=== PATIENT | male | born 1990 | race Caucasian/White ===

== ENCOUNTER 2022-06-06 07:30 | Observation (INO) | payer OTHER, SELFPAY ==
[2022-06-06] VITALS (129 sets, daily range): BP systolic 93–139; BP diastolic 57–82; PULSE 81–138; RESP 15–32; TEMP 36.6–36.9; O2SAT 96–100; BMI 38.2
[2022-06-06 07:50] LABS: Glucose Point of Care > 600 mg/dL (70-110)
--- NOTE | 2022-06-06 07:53 | ED_ITS ---
HPI - General Adult General: Chief complaint: General Medical Stated complaint: Type 1 Diabetes, very sick Time Seen by Provider: 06/06/22 07:34 Source: patient Mode of arrival: ambulatory History of Present Illness: 31-year-old male with a known history of type 1 diabetes mellitus has not had insulin for last 2 days. He had run out of insulin he is waiting to get paid before he refill that he has been having nausea and vomiting blood sugars have been markedly elevated his glucometer just read high. Polyuria polydipsia. States is gotten point that even drinking water he vomits. Denies hematochezia melena hematemesis coffee-ground emesis. Prior to running out of insulin he had not been ill he has not had any shortness of breath or cough no dysuria urgency or frequency no abdominal pain prior to the onset of the vomiting. Onset (ago): day(s) (2) Severity: severe Quality: aching Pain Consistency: constant Relieving factors: none Associated symptoms: Reports decreased appetite, headache(s), malaise, nausea, vomiting and weakness; Deny chest pain, confusion, cough, diaphoresis, dyspnea, fevers/chills, rash, palpitations, seizures, short of breath or syncope Treatments prior to arrival: none Review of Systems Const: Reports: fatigue and malaise; Denies: fever(s), chills or diaphoresis ENMT: Denies: throat pain, ear or mastoid pain, nasal discharge or nasal congestion Card: Denies: chest pain, palpitations or syncope Resp: Denies: dyspnea GI: Reports: abdominal pain, nausea, vomiting and GI cramping; Denies: hematemesis, diarrhea, bloating or hematochezia : Reports: difficulty urinating and urinary frequency; Denies: flank pain, dysuria or urinary urgency Musc: Reports: neck pain; Denies: back pain Skin/Breast: Denies: rash or pruritus Neuro: Reports: headache(s); Denies: confusion PFSH ED PFSH: Medical History (Updated 06/06/22 @ 10:07 by Catalino Rousseau MD) Type 1 diabetes mellitus Surgical History (Updated 06/06/22 @ 10:05 by Catalino Rousseau MD) History of surgery on lower extremity Family History (Updated 06/06/22 @ 10:05 by Catalino Rousseau MD) Other Hypertension Social History (Updated 06/06/22 @ 07:56 by Alfred Howard DO) Smoking and tobacco status: never smoked Alcohol intake: current Physical Exam Const: GENERAL APPEARANCE: cooperative ORIENTATION/CONSCIOUSNESS: Yes awake, Yes oriented to person, Yes oriented to place and Yes oriented to time HENMT: COMMON NORMALS: normocephalic, atraumatic and hearing grossly normal bilaterally HEAD & SCALP: normocephalic and atraumatic Resp: COMMON NORMALS: normal respiratory effort, No retractions, No use of a ccessory muscles and clear to auscultation bilaterally AUSCULTATION: clear to auscultation bilaterally Cardio: COMMON NORMALS: regular rhythm and No murmurs present (Cardio) RATE: tachycardic RHYTHM: regular rhythm GI: COMMON NORMALS: Soft to palpation and No hepatosplenomegaly present AUSCULTATION: Yes normoactive bowel sounds PALPATION: Yes Soft to palpation, No Tenderness to palpation present (GI), No Guarding due to palpation present (GI) and Yes No hepatosplenomegaly present Extremity: COMMON NORMALS: normal to inspection, capillary refill normal, no clubbing, cyanosis or edema, no calf tenderness and no pedal edema Neuro: SENSORIUM/ORIENTATION: Yes oriented to person, Yes oriented to place and Yes oriented to time Skin: COMMON NORMALS: no rashes or lesions noted GENERAL SKIN EXAM: no rashes or lesions noted Course Vital Signs: Vital signs: Vital Signs Temperature 97.8 F 06/06/22 07:37 Pulse Rate 118 H 06/06/22 09:55 Respiratory Rate 20 H 06/06/22 09:55 Blood Pressure 125/61 06/06/22 09:55 Pulse Oximetry 100 06/06/22 09:55 Oxygen Delivery Me thod 06/06/22 07:37 MDM - General Adult Medical Decision Making DKA secondary to nonuse of insulin. IV fluids started initial insulin bolus and insulin drip as well as sodium bicarb ordered discussed Dr. Rousseau he will admit to the ICU. There is a delay for available beds because of's staffing and census he will remain in the ER until bed is available. Medical Records I reviewed the patient's medical records. Lab Data I reviewed the patient's lab results. : 06/06/22 07:55 06/06/22 07:55 Radiology Impressions Chest X-Ray 06/06/22 08:47 IMPRESSION: No chest radiographic evidence of acute cardiopulmonary disease. Laboratory Results WBC 19.8 10^3/uL (4.0-10.0) H 06/06/22 07:55 RBC 5.17 10^6/uL (4.1-5.3) 06/06/22 07:55 Hgb 16.0 g/dL (11.7-16.6) 06/06/22 07:55 Hct 51.4 % (42.0-52.0) 06/06/22 07:55 MCV 99.4 fl (80-94) H 06/06/22 07:55 MCH 30.9 pg (28.0-34.0) 06/06/22 07:55 MCHC 31.1 g/dL (30.0-36.0) 06/06/22 07:55 RDW 13.1 % (12.1-15.1) 06/06/22 07:55 Plt Count 469 10^3/cmm (130-400) H 06/06/22 07:55 MPV 9.6 fL (7.4-10.4) 06/06/22 07:55 Neut % (Auto) 79.2 % 06/06/22 07:55 Lymph % (Auto) 16.1 % 06/06/22 07:55 [place] % (Auto) 3.7 % 06/06/22 07:55 Eos % (Auto) 0.1 % 06/06/22 07:55 Baso % (Auto) 0.3 % 06/06/22 07:55 Neut # (Auto) 15.73 10^3/uL (1.8-7.7) H 06/06/22 07:55 Lymph # (Auto) 3.2 10^3/uL (0.8-4.8) 06/06/22 07:55 [place] # (Auto) 0.7 10^3/uL (0.2-0.9) 06/06/22 07:55 Eos # (Auto) 0.0 10^3/uL (0.0-0.8) 06/06/22 07:55 Baso # (Auto) 0.1 10^3/uL (0.0-0.1) 06/06/22 07:55 Nucleated RBC % (auto) 0 % 06/06/22 07:55 Nucleated RBCs # 0.0 /100WBC 06/06/22 07:55 Specimen Type Arterial 06/06/22 08:17 Sample Site Radial, left 06/06/22 08:17 ABG pH 7.00 (7.35-7.45) L* 06/06/22 08:17 ABG pCO2 17.3 mmHg (35-45) L* 06/06/22 08:17 ABG pO2 128.0 mmHg (80.0-100.0) H 06/06/22 08:17 ABG HCO3 4.3 mmol/L (22-26) L 06/06/22 08:17 ABG O2 Saturation 97.3 06/06/22 08:17 ABG Base Excess -25.3 mmol/L (-2.0-2.0) L 06/06/22 08:17 Anthony Test Pos 06/06/22 08:17 A-a O2 Gradient Not Reportable 06/06/22 08:17 Hematocrit 45.5 % (42-52) 06/06/22 08:17 Hgb O2 Saturation 95.8 % (95-100) 06/06/22 08:17 Carboxyhemoglobin < 1.0 %THgb (0.4-20.1) 06/06/22 08:17 Methemoglobin 0.8 % (0.4-1.5) 06/06/22 08:17 Total Hemoglobin 14.9 g/dL (14-18) 06/06/22 08:17 Sodium 132.0 mmol/L (131-143) 06/06/22 08:17 Potassium 5.1 mmol/L (3.5-5.0) H 06/06/22 08:17 Glucose 647.0 mg/dL (70-115) H 06/06/22 08:17 Ionized Calcium 1.2 mmol/L (1.1-1.4) 06/06/22 08:17 O2 Delivery Device Room air 06/06/22 08:17 FiO2 21.0 % 06/06/22 08:17 Property Management Coordinator ID Cak 06/06/22 08:17 Sodium 126 mmol/L (136-145) L 06/06/22 07:55 Potassium 5.1 mmol/L (3.5-5.1) 06/06/22 07:55 Chloride 86 mmol/L (98-107) L 06/06/22 07:55 Carbon Dioxide 5 mmol/L (22-29) L* 06/06/22 07:55 Anion Gap 40.1 (5-19) H 06/06/22 07:55 BUN 23 mg/dL (6-20) H 06/06/22 07:55 Creatinine 1.3 mg/dL (0.7-1.2) H 06/06/22 07:55 GFR Calculation 63.6 mL/min (90-130) L 06/06/22 07:55 Glucose 670 mg/dL (65-115) H* 06/06/22 07:55 POC Glucose > 600 mg/dL (70-110) H* 06/06/22 07:46 Calculated Osmolality 297 mOsm/kg (285-295) H 06/06/22 07:55 Calcium 9.6 mg/dL (8.5-10.5) 06/06/22 07:55 Total Bilirubin 0.2 mg/dL (0.15-1.2) 06/06/22 07:55 AST 36 U/L (0-40) 06/06/22 07:55 ALT 44 U/L (0-41) H 06/06/22 07:55 Alkaline Phosphatase 317 U/L (40-130) H 06/06/22 07:55 Total Protein 8.2 g/dL (6.6-8.7) 06/06/22 07:55 Albumin 4.2 g/dL (3.5-5.2) 06/06/22 07:55 Globulin 4.0 g/dL (1.3-4.6) 06/06/22 07:55 Lipase 14 U/L (13-60) 06/06/22 07:55 Urine Color Straw (Yellow) 06/06/22 09:20 Urine Appearance Clear (CLEAR) 06/06/22 09:20 Urine pH 5 (5-7) 06/06/22 09:20 Ur Specific [place] 1.020 (1.005-1.030) 06/06/22 09:20 Urine Protein Neg (Negative) 06/06/22 09:20 Urine Glucose (UA) 4+ (Normal) H 06/06/22 09:20 Urine Ketones 3+ (Negative) H 06/06/22 09:20 Urine Blood Neg (Negative) 06/06/22 09:20 Urine Nitrate Negative (Negative) 06/06/22 09:20 Urine Bilirubin Neg (Negative) 06/06/22 09:20 Urine Urobilinogen Norm mg/dL (Negative) 06/06/22 09:20 Ur Leukocyte Esterase Negative (Negative) 06/06/22 09:20 Serum Ketones Positive (Negative) H 06/06/22 07:55 Discharge Plan Discharge Patient Disposition: Admitted As Inpatient Clinical Impression: DKA (diabetic ketoacidosis), Type 1 diabetes mellitus, Acute kidney injury, Transaminitis, Pseudohyponatremia, Leukocytosis Prescriptions: No Action Tylenol Ex Str Rapid Release 500 mg Tablet 1,000 mg PO Q6H PRN (Reason: Pain) Novolin R Regular U-100 Insuln 100 unit/mL Solution See Rx Instructions .ROUTE .COMPLEX Rx Instructions: 1 UNIT FOR EVERY 6-7 CARBS insulin lispro [Humalog U-100 Insulin] 100 unit/mL Solution See Rx Instructions .ROUTE .COMPLEX Rx Instructions: 1 UNIT FOR EVERY 6-7 CARBS Coding Level of Care Code ED Filter Washer And Presser for Chg Fwd Exam Detailed
[2022-06-06] MEDS: promethazine 25 mg/mL SDV 1 mL IM (08:07)
[2022-06-06] MEDS: sodium chloride 0.9% 1,000 ML 999 ML IV ×4 (08:07→10:23)
[2022-06-06 08:14] LABS: Basophils # 0.1 10^3/uL (0.0-0.1); Basophils % 0.3 %; Eosinophils % 0.1 %; Hematocrit 51.4 % (42.0-52.0); Lymphocytes # 3.2 10^3/uL (0.8-4.8); Lymphocytes % 16.1 %; Mean Corpuscular HGB Conc 31.1 g/dL (30.0-36.0); Mean Corpuscular Hemoglobin 30.9 pg (28.0-34.0); Mean Corpuscular Volume 99.4 fl (80-94); Mean Platelet Volume 9.6 fL (7.4-10.4); Monocytes # 0.7 10^3/uL (0.2-0.9); Monocytes % 3.7 %; Neutrophils # 15.73 10^3/uL (1.8-7.7); Neutrophils % 79.2 %; Nucleated Red Blood Cells % 0 %; Platelet Count 469 10^3/cmm (130-400); Red Blood Count 5.17 10^6/uL (4.1-5.3); Red Cell Distribution Width 13.1 % (12.1-15.1); White Blood Count 19.8 10^3/uL (4.0-10.0)
[2022-06-06 08:29] LABS: ABG PCO2 17.3 mmHg (35-45); Arterial Blood Gas Hematocrit 45.5 % (42-52); Base Excess ABG -25.3 mmol/L (-2.0-2.0); Blood Gas Allen Test Pos; Blood Gas Operator Identificat CAK; Blood Gas Sample Site Radial, left; Blood Gas Sample Type Arterial; Carboxyhemoglobin < 1.0 %THgb (0.4-20.1); HCO3 ABG 4.3 mmol/L (22-26); HGB O2 Sat 95.8 % (95-100); Ionized Calcium Level - ABG 1.2 mmol/L (1.1-1.4); Methemoglobin 0.8 % (0.4-1.5); Oxygen Device ROOM AIR; Oxygen Saturation ABG 97.3; Potassium Level - ABG 5.1 mmol/L (3.5-5.0); Total Hemoglobin 14.9 g/dL (14-18)
[2022-06-06 08:34] LABS: Ketone (Acetest) Serum Positive (Negative)
[2022-06-06 08:38] LABS: Alanine Aminotransferase 44 U/L (0-41); Albumin Level 4.2 g/dL (3.5-5.2); Alkaline Phosphatase 317 U/L (40-130); Anion Gap 40.1 (5-19); Aspartate Amino Transferase 36 U/L (0-40); Blood Urea Nitrogen 23 mg/dL (6-20); Calcium 9.6 mg/dL (8.5-10.5); Chloride 86 mmol/L (98-107); Glomerular Filtration Rate 63.6 mL/min (90-130); Lipase 14 U/L (13-60); Osmolality Calculated 297 mOsm/kg (285-295); Potassium 5.1 mmol/L (3.5-5.1); Sodium 126 mmol/L (136-145); Total Bilirubin 0.2 mg/dL (0.15-1.2); Total Protein 8.2 g/dL (6.6-8.7)
[2022-06-06 08:39] LABS: Carbon Dioxide 5 mmol/L (22-29); Glucose 670 mg/dL (65-115)
--- NOTE | 2022-06-06 08:47 | XRR_ITS ---
PROCEDURE INFORMATION: Exam: XR Chest Exam date and time: 06/06/2022 9:04 AM Age: 31 years old Clinical indication: Cough and dyspnea; Additional info: Dyspnea/cough TECHNIQUE: Imaging protocol: Radiologic exam of the chest. Views: 1 view. COMPARISON: No relevant prior studies available. FINDINGS: Lungs: There are normal lung volumes without interstitial or airspace opacities. Pleural spaces: There are no pleural effusions or pneumothorax. Heart/Mediastinum: The heart size is normal. The mediastinal contour is normal. The trachea is in the midline. Bones/joints: No acute abnormalities. XR/XR chest 1V portable [id number] IMPRESSION: No chest radiographic evidence of acute cardiopulmonary disease.
--- NOTE | 2022-06-06 08:56 | ECG_ITS ---
[facility] Test Date: 2022-06-06 Pat Name: Shabbir Britt Department: Room: Gender: Male Grid Caster: : 1990 Requested By: Alfred Britt Order Number: [id number] Pretty MD: Bob Milian M.D. Measurements Intervals [place] Rate: 109 P: 55 DC: 140 QRS: 70 QRSD: 97 T: 36 QT: 333 QTc: 450 Interpretive Statements SINUS TACHYCARDIA No previous ECG available for comparison Electronically Signed On 06-07-2022 8:28:30 CDT by Bob Milian M.D. [id number]
[2022-06-06] MEDS: insulin regular-human 100 units/1 mL 10 UNIT IVP (09:03)
[2022-06-06] MEDS: sodium bicarbonate 8.4% 1 mEq/mL 50mL Syr 100 MEQ IVP (09:21)
--- NOTE | 2022-06-06 09:30 | PC.PHAR ---
PT STATES HE TAKES CARE OF HIS OWN MEDICATIONS-PT STATES HE USES NOVOLIN R PT STATES HE BUYS OTC AT [facility]-PT STATES HE USES HUMALOG STATES HE GET FROM [facility] OR [facility] CALLED [facility]OTH PHARMACIES STATES NOT FILLED INSULIN FOR THE PT-CALLED [facility] [phone] STATES THEY HAVE NOT FILLED INSULIN FOR THE PT-NOTES ARE MADE IN THE PHARMACY COMMENTS
[2022-06-06 09:45] LABS: Add Urine Microscopic? NO; Charge for UA Resulting for Rev
[2022-06-06 09:59] LABS: Protein Urine Neg (Negative); Urine Appearance Clear (CLEAR); Urine Color Straw (Yellow); pH Urine 5 (5-7)
--- NOTE | 2022-06-06 09:59 | P.HP_ITS ---
Providers/Chief Complaint Admitting Physician: Catalino Rousseau MD Chief Complaint: Type 1 Diabetes, very sick History of Present Illness Shabbir Britt is a 31 year old male presenting to the emergency department with 2 days of nausea, vomiting, confusion. He stopped taking his insulin 2 days ago when he ran out of her prescription. is present with him, who supplements his history. No recent illness, cough, fever, exposure to COVID. Patient denies any abdominal pain, diarrhea. He has not had an episode of DKA in over 10 years. Patient reports he typically takes about 15 to 25 units of Levemir, and counts carbs for his short acting insulin. No blood in emesis. Review of Systems General: Reports: 10 or more systems reviewed and unremarkable except in HPI and below Const: Denies: fever(s) or chills Eyes: Denies: change in vision ENMT: Denies: throat pain Card: Denies: chest pain Resp: Denies: dyspnea GI: Reports: nausea and vomiting; Denies: abdominal pain, hematemesis, coffee ground emesis, hematochezia or melena : Denies: flank pain Musc: Denies: neck pain Skin/Breast: Denies: rash Neuro: Denies: headache(s) Psych: Denies: anxiety or depression Endo: Reports: polyuria and polydipsia Librado/Lymph: Denies: easy bruising All/Imm: Denies: urticaria Medications/Allergies Home Medications Medication Instructions Recorded Confirmed Last Taken Type acetaminophen 500 mg tablet 1,000 mg PO Q6H PRN Pain 06/06/22 06/06/22 Unknown History insulin lispro 100 unit/mL See Rx Instructions .Route .COMPLEX 06/06/22 06/06/22 Unknown History subcutaneous solution (Humalog U-100 Insulin) insulin regular human 100 unit/mL See Rx Instructions .Route .COMPLEX 06/06/22 06/06/22 Unknown History injection solution (Novolin R Regular U-100 Insulin) Allergies Allergy/AdvReac Type Severity Reaction Status Date / Time No Known Allergies Allergy Verified 06/06/22 07:40 PFSH Acute PFSH: Medical History (Updated 06/06/22 @ 10:07 by Catalino Rousseau MD) Type 1 diabetes mellitus Surgical History (Updated 06/06/22 @ 10:05 by Catalino Rousseau MD) History of surgery on lower extremity Family History (Updated 06/06/22 @ 10:05 by Catalino Rousseau MD) Other Hypertension Social History (Updated 06/06/22 @ 07:56 by Alfred Howard DO) Smoking and tobacco status: never smoked Alcohol intake: current Vitals/I&O/Wt Last Vital Signs Temp 97.8 F 06/06/22 07:37 Pulse 119 H 06/06/22 09:35 Resp 24 H 06/06/22 09:35 BP 130/75 06/06/22 09:35 Pulse Ox 97 06/06/22 07:37 O2 Del Method 06/06/22 07:37 06/05/22 06/06/22 06/06/22 22:59 06:59 14:59 Intake Total 965.7 / 965.7 Balance 965.7 / 965.7 Weight last 48 hrs Weight 104.326 kg Physical Exam Narrative: General exam no distress Neck is supple no lymphadenopathy thyromegaly Cardiovascular regular in rhythm without murmur, no S3 or S4 Lungs clear no wheezing or crackles Abdomen is soft nontender positive bowel sounds. No obvious organomegaly exam is deferred Extremities no cyanosis clubbing or edema, cap refill brisk Skin no rash Neuro no obvious focal deficits, sleepy Data : 06/06/22 07:55 06/06/22 07:55 Other Labs: ABG demonstrates pH 7.0, PCO2 of 17, PO2 of 128 on room air LFTs normal with exception of ALT of 44, alk phos of 317 Urinalysis with 3+ ketones otherwise negative. Serum ketones positive Lipase normal, calcium normal Chest x-ray no infiltrate EKG demonstrates sinus tachycardia, normal axis A&P Assessment and plan (1) DKA (diabetic ketoacidosis): Patient presents in DKA, after not taking his insulin for 2 days Hydration Insulin drip When blood sugar less than 250 start D5 half-normal saline with 20 mill equivalents of potassium chloride per liter When anion gap closes, less than 16, started long-acting insulin Clear liquid diet if patient wishes Will need to make sure he has insulin products when he leaves Close electrolyte management (2) Acute kidney injury: Should resolve with hydration (3) Transaminitis: Check hepatitis panel (4) Pseudohyponatremia: Will resolve with correction of glucose (5) Leukocytosis: No evidence of bacterial infection currently. Likely demargination secondary to stress. Continue to follow. Plan Full code Low risk for DVT, no prophylaxis needed. Pepcid for GI prophylaxis Attestations 2 Medical Necessity Statement*: Will need less than 2 midnight stay for evaluation and treatment of DKA Coding Level of Care Code Acute Equipment Superintendent for g Fwd Diagnoses DKA (diabetic ketoacidosis) E11.10 Acute kidney injury N17.9 Transaminitis R74.01 Pseudohyponatremia R79.89 Leukocytosis D72.829
[2022-06-06 10:00] LABS: Bilirubin Urine Neg (Negative); Blood Urine Neg (Negative); Glucose Urine UA 4+ (Normal); Ketones Urine 3+ (Negative); Leukocyte Esterase Urine Negative (Negative); Nitrate Urine Negative (Negative); Urobilinogen Urine Norm (Negative)
[2022-06-06] MEDS: sodium chloride 0.9% 1,000 ML 200 ML IV (11:00)
[2022-06-06] MEDS: famotidine 20 mg/2 mL INJ IVP ×2 (11:00→22:23)
[2022-06-06] MEDS: insulin regular-human 250 UNIT in sodium chloride 0.9% 250 ML 10 UNIT IV (11:12)
[2022-06-06 11:17] LABS: Glucose Point of Care 412 mg/dL (70-110)
[2022-06-06 11:17] LABS: Glucose Point of Care 364 mg/dL (70-110)
[2022-06-06 12:18] LABS: Glucose Point of Care 255 mg/dL (70-110)
[2022-06-06] MEDS: D5-NS 0.45% + KCL 20 mEq 20 MEQ/1,000 ML BAG 150 MEQ IV ×2 (13:13→18:23)
[2022-06-06 13:21] LABS: Glucose Point of Care 163 mg/dL (70-110)
[2022-06-06 13:28] LABS: Blood Urea Nitrogen 17 mg/dL (6-20); Calcium 7.9 mg/dL (8.5-10.5); Chloride 106 mmol/L (98-107); Glomerular Filtration Rate 86.1 mL/min (90-130); Glucose 221 mg/dL (65-115); Magnesium 2.1 mg/dL (1.7-2.3); Osmolality Calculated 298 mOsm/kg (285-295); Phosphorus 3.4 mg/dL (2.5-4.5); Sodium 140 mmol/L (136-145)
[2022-06-06 13:38] LABS: Carbon Dioxide 8 mmol/L (22-29)
[2022-06-06 13:40] LABS: Hepatitis A Antibody IgM Non-Reactive (Nonreactive); Hepatitis B Core IgM Non-Reactive (Nonreactive); Hepatitis B Surface Antigen Non-Reactive (Nonreactive); Hepatitis C Virus Antibody Non-Reactive (Nonreactive)
[2022-06-06 14:14] LABS: Glucose Point of Care 196 mg/dL (70-110)
[2022-06-06 15:32] LABS: Glucose Point of Care 142 mg/dL (70-110)
--- NOTE | 2022-06-06 16:58 | PC.NURSE ---
To unit Pt brought to unit by ER staff via gurney. Pt ambulated from gurney to bed. Pt is alert and oriented x 4. Pt has been oriented to room and call light within reach.
[2022-06-06 17:55] LABS: Glucose Point of Care 161 mg/dL (70-110)
[2022-06-06 18:13] LABS: Anion Gap 20.6 (5-19); Blood Urea Nitrogen 12 mg/dL (6-20); Calcium 8.1 mg/dL (8.5-10.5); Carbon Dioxide 14 mmol/L (22-29); Chloride 107 mmol/L (98-107); Glomerular Filtration Rate 97.2 mL/min (90-130); Glucose 165 mg/dL (65-115); Osmolality Calculated 287 mOsm/kg (285-295); Potassium 4.6 mmol/L (3.5-5.1); Sodium 137 mmol/L (136-145)
[2022-06-06 19:30] LABS: Glucose Point of Care 135 mg/dL (70-110)
[2022-06-06 21:28] LABS: Glucose Point of Care 161 mg/dL (70-110)
[2022-06-06 21:28] LABS: Glucose Point of Care 145 mg/dL (70-110)
--- NOTE | 2022-06-06 21:31 | PC.NURSE ---
Patient reports no pain or N/V upon shift assessment. Patient is AOx4 and cooperative. Hospitalist requests that 10 units of Lantus begin once Anion Gap is closed.
[2022-06-06 23:09] LABS: Glucose Point of Care 157 mg/dL (70-110)
[2022-06-06 23:52] LABS: Anion Gap 19.2 (5-19); Blood Urea Nitrogen 9 mg/dL (6-20); Carbon Dioxide 16 mmol/L (22-29); Chloride 105 mmol/L (98-107); Glomerular Filtration Rate 111.3 mL/min (90-130); Glucose 179 mg/dL (65-115); Magnesium 1.9 mg/dL (1.7-2.3); Osmolality Calculated 285 mOsm/kg (285-295); Phosphorus 2.5 mg/dL (2.5-4.5); Potassium 4.2 mmol/L (3.5-5.1); Sodium 136 mmol/L (136-145)
[2022-06-07] VITALS (78 sets, daily range): BP systolic 91–138; BP diastolic 55–71; PULSE 62–95; RESP 14–29; TEMP 36.9; O2SAT 97–100
[2022-06-07 00:25] LABS: Glucose Point of Care 220 mg/dL (70-110)
[2022-06-07 00:25] LABS: Glucose Point of Care 161 mg/dL (70-110)
[2022-06-07 01:39] LABS: Glucose Point of Care 153 mg/dL (70-110)
[2022-06-07 02:12] LABS: Glucose Point of Care 145 mg/dL (70-110)
[2022-06-07 03:28] LABS: Glucose Point of Care 198 mg/dL (70-110)
[2022-06-07 04:11] LABS: Glucose Point of Care 183 mg/dL (70-110)
[2022-06-07] MEDS: D5-NS 0.45% + KCL 20 mEq 20 MEQ/1,000 ML BAG 150 MEQ IV ×2 (04:30→05:00)
[2022-06-07 05:11] LABS: Glucose Point of Care 148 mg/dL (70-110)
[2022-06-07 05:26] LABS: Basophils # 0.1 10^3/uL (0.0-0.1); Basophils % 0.4 %; Eosinophils % 0.3 %; Hematocrit 36.7 % (42.0-52.0); Lymphocytes # 2.5 10^3/uL (0.8-4.8); Lymphocytes % 19.8 %; Mean Corpuscular HGB Conc 32.7 g/dL (30.0-36.0); Mean Corpuscular Hemoglobin 30.5 pg (28.0-34.0); Mean Corpuscular Volume 93.4 fl (80-94); Mean Platelet Volume 9.1 fL (7.4-10.4); Monocytes % 7.9 %; Neutrophils # 8.76 10^3/uL (1.8-7.7); Nucleated Red Blood Cells % 0 %; Platelet Count 354 10^3/cmm (130-400); Red Blood Count 3.93 10^6/uL (4.1-5.3); Red Cell Distribution Width 13.3 % (12.1-15.1); White Blood Count 12.4 10^3/uL (4.0-10.0)
[2022-06-07 05:49] LABS: Alanine Aminotransferase 26 U/L (0-41); Albumin Level 3.3 g/dL (3.5-5.2); Alkaline Phosphatase 185 U/L (40-130); Aspartate Amino Transferase 21 U/L (0-40); Blood Urea Nitrogen 7 mg/dL (6-20); Calcium 8.3 mg/dL (8.5-10.5); Carbon Dioxide 17 mmol/L (22-29); Chloride 105 mmol/L (98-107); Globulin 2.6 g/dL (1.3-4.6); Glomerular Filtration Rate 111.3 mL/min (90-130); Glucose 157 mg/dL (65-115); Magnesium 1.9 mg/dL (1.7-2.3); Osmolality Calculated 281 mOsm/kg (285-295); Sodium 135 mmol/L (136-145); Total Bilirubin 0.2 mg/dL (0.15-1.2); Total Protein 5.9 g/dL (6.6-8.7)
[2022-06-07 06:33] LABS: Glucose Point of Care 248 mg/dL (70-110)
[2022-06-07] MEDS: insulin glargine 100 units/1 mL 20 UNIT SUBCUT (08:03)
[2022-06-07] MEDS: sodium chloride 0.9% 1,000 ML 200 ML IV (08:14)
[2022-06-07 11:19] LABS: Glucose Point of Care 218 mg/dL (70-110)
--- NOTE | 2022-06-07 12:22 | PC.CHAP ---
Pastoral Care Encounter/Spiritual Assessment Type of Contact [] Declined customer retention representative visit [] Patient/Family/Request visit [] Outpatient visit [] Follow-up visit [] Physician referral [] Code/Alert [x] Routine visit [] Staff referral [] Actively dying [] Patient sleeping [] Family support [] [] Out of room [] Palliative care [] [] Receiving care in room [] Pre-surgical visit [] Trauma [] Long length of stay [] ICU visit [] Other: Relational/Emotional Strength [x] Patient feels connected with others/family/visitors/staff [] Distress [] Loneliness/isolation [] Abandonment Spirituality of Patient x] Person of Tennille [] Attends Faith of their Tennille [x] Believes in Prayer [] Reads Bible or Church materials [] There are Spiritual issues to be addressed Lining Presser Interventions [x] Prayer [x] Active listening [] Non-anxious presence [] Spiritual/emotional support [] Crisis/trauma care [] Spiritual counseling [] Bereavement support [] Provided bereavement packet [] Provided Bible/devotional materials [] Provided toy/stuffed animal, coloring book to patient or family member [] Provided Communion [] Anointing/[place] [] Salvation [x] Completed spiritual assessment [] Other: Impact on Illness or Injury [] Angry [] Fearful [] Anxious [] Often cries [] Exhaustion [] Unable to work [] Unable to attend jewish [] Unable to walk/stand [] Unable to read [] Unable to drive [] Unable to eat/drink [] Unable to sleep [] Unable to be with family [] Patient intubated [] Other: Summary Time spent with patient
[2022-06-07] MEDS: insulin lispro 100 unit/1 mL SUBCUT (12:30)
[2022-06-07 13:54] LABS: Anion Gap 14.4 (5-19); Blood Urea Nitrogen 7 mg/dL (6-20); Calcium 6.1 mg/dL (8.5-10.5); Carbon Dioxide 16 mmol/L (22-29); Chloride 106 mmol/L (98-107); Glomerular Filtration Rate 155.2 mL/min (90-130); Glucose 338 mg/dL (65-115); Osmolality Calculated 287 mOsm/kg (285-295); Potassium 3.4 mmol/L (3.5-5.1); Sodium 133 mmol/L (136-145)
--- NOTE | 2022-06-07 14:01 | PM.DCS ---
Discharge Providers Date of Admission: 06/06/22 10:33 Date of Discharge: June 07, 2022 Attending Provider at Admission: Catalino Rousseau MD Attending Provider at Discharge: Catalino Rousseau MD Diagnoses at Discharge Discharge Diagnosis (1) DKA (diabetic ketoacidosis): Status: Acute (2) Acute kidney injury: Status: Acute (3) Transaminitis: Status: Acute (4) Pseudohyponatremia: Status: Acute (5) Leukocytosis: Status: Acute Reason for Visit Reason for Visit: Type 1 Diabetes, very sick Hospital Course Hospital Course Shabbir is a 31-year-old white male who presented to the hospital after running out of insulin for 2 days in DKA. He received quite a bit of fluids, and insulin drip, and close electrolyte management. Throughout his hospital course his anion gap closed, p.o. diet was initiated, and long-acting insulin was initiated. By the afternoon on June 07 he was doing well, with a closed And it was thought he could be discharged home. Prescriptions were issued. Follow-up was arranged. He was given a chance to ask questions, and agreed with the plan. Physical Exam Narrative: General exam no distress Neck is supple no lymphadenopathy thyromegaly Cardiovascular regular rate and rhythm without murmur Lungs clear Abdomen is soft, positive bowel sounds Extremities no cyanosis clubbing or edema Discharge Data Studies Completed and Pending Completed Studies During Hospitalization Category Date Time Status XR chest 1V portable [id number] Stat Exams 06/06/22 08:47 Completed Radiology Impressions Chest X-Ray 06/06/22 08:47 IMPRESSION: No chest radiographic evidence of acute cardiopulmonary disease. Laboratory Results WBC 12.4 10^3/uL (4.0-10.0) H 06/07/22 05:03 RBC 3.93 10^6/uL (4.1-5.3) L 06/07/22 05:03 Hgb 12.0 g/dL (11.7-16.6) 06/07/22 05:03 Hct 36.7 % (42.0-52.0) L 06/07/22 05:03 MCV 93.4 fl (80-94) D 06/07/22 05:03 MCH 30.5 pg (28.0-34.0) 06/07/22 05:03 MCHC 32.7 g/dL (30.0-36.0) D 06/07/22 05:03 RDW 13.3 % (12.1-15.1) 06/07/22 05:03 Plt Count 354 10^3/cmm (130-400) 06/07/22 05:03 MPV 9.1 fL (7.4-10.4) 06/07/22 05:03 Neut % (Auto) 71.0 % 06/07/22 05:03 Lymph % (Auto) 19.8 % 06/07/22 05:03 [place] % (Auto) 7.9 % 06/07/22 05:03 Eos % (Auto) 0.3 % 06/07/22 05:03 Baso % (Auto) 0.4 % 06/07/22 05:03 Neut # (Auto) 8.76 10^3/uL (1.8-7.7) H 06/07/22 05:03 Lymph # (Auto) 2.5 10^3/uL (0.8-4.8) 06/07/22 05:03 [place] # (Auto) 1.0 10^3/uL (0.2-0.9) H 06/07/22 05:03 Eos # (Auto) 0.0 10^3/uL (0.0-0.8) 06/07/22 05:03 Baso # (Auto) 0.1 10^3/uL (0.0-0.1) 06/07/22 05:03 Nucleated RBC % (auto) 0 % 06/07/22 05:03 Nucleated RBCs # 0.0 /100WBC 06/07/22 05:03 Specimen Type Arterial 06/06/22 08:17 Sample Site Radial, left 06/06/22 08:17 ABG pH 7.00 (7.35-7.45) L* 06/06/22 08:17 ABG pCO2 17.3 mmHg (35-45) L* 06/06/22 08:17 ABG pO2 128.0 mmHg (80.0-100.0) H 06/06/22 08:17 ABG HCO3 4.3 mmol/L (22-26) L 06/06/22 08:17 ABG O2 Saturation 97.3 06/06/22 08:17 ABG Base Excess -25.3 mmol/L (-2.0-2.0) L 06/06/22 08:17 Anthony Test Pos 06/06/22 08:17 A-a O2 Gradient Not Reportable 06/06/22 08:17 Hematocrit 45.5 % (42-52) 06/06/22 08:17 Hgb O2 Saturation 95.8 % (95-100) 06/06/22 08:17 Carboxyhemoglobin < 1.0 %THgb (0.4-20.1) 06/06/22 08:17 Methemoglobin 0.8 % (0.4-1.5) 06/06/22 08:17 Total Hemoglobin 14.9 g/dL (14-18) 06/06/22 08:17 Sodium 132.0 mmol/L (131-143) 06/06/22 08:17 Potassium 5.1 mmol/L (3.5-5.0) H 06/06/22 08:17 Glucose 647.0 mg/dL (70-115) H 06/06/22 08:17 Ionized Calcium 1.2 mmol/L (1.1-1.4) 06/06/22 08:17 O2 Delivery Device Room air 06/06/22 08:17 FiO2 21.0 % 06/06/22 08:17 [employer]imb[employer] Team Member ID Cak 06/06/22 08:17 Sodium 133 mmol/L (136-145) L 06/07/22 13:20 Potassium 3.4 mmol/L (3.5-5.1) L 06/07/22 13:20 Chloride 106 mmol/L (98-107) 06/07/22 13:20 Carbon Dioxide 16 mmol/L (22-29) L 06/07/22 13:20 Anion Gap 14.4 (5-19) 06/07/22 13:20 BUN 7 mg/dL (6-20) 06/07/22 13:20 Creatinine 0.6 mg/dL (0.7-1.2) L 06/07/22 13:20 GFR Calculation 155.2 mL/min (90-130) H 06/07/22 13:20 Glucose 338 mg/dL (65-115) H 06/07/22 13:20 POC Glucose 218 mg/dL (70-110) H 06/07/22 11:15 Calculated Osmolality 287 mOsm/kg (285-295) 06/07/22 13:20 Calcium 6.1 mg/dL (8.5-10.5) L 06/07/22 13:20 Phosphorus 2.5 mg/dL (2.5-4.5) 06/06/22 23:33 Magnesium 1.9 mg/dL (1.7-2.3) 06/07/22 05:03 Total Bilirubin 0.2 mg/dL (0.15-1.2) 06/07/22 05:03 AST 21 U/L (0-40) 06/07/22 05:03 ALT 26 U/L (0-41) 06/07/22 05:03 Alkaline Phosphatase 185 U/L (40-130) H 06/07/22 05:03 Total Protein 5.9 g/dL (6.6-8.7) L D 06/07/22 05:03 Albumin 3.3 g/dL (3.5-5.2) L 06/07/22 05:03 Globulin 2.6 g/dL (1.3-4.6) 06/07/22 05:03 Lipase 14 U/L (13-60) 06/06/22 07:55 TSH 1.20 uIU/mL (0.27-4.20) 06/06/22 07:55 Urine Color Straw (Yellow) 06/06/22 09:20 Urine Appearance Clear (CLEAR) 06/06/22 09:20 Urine pH 5 (5-7) 06/06/22 09:20 Ur Specific [place] 1.020 (1.005-1.030) 06/06/22 09:20 Urine Protein Neg (Negative) 06/06/22 09:20 Urine Glucose (UA) 4+ (Normal) H 06/06/22 09:20 Urine Ketones 3+ (Negative) H 06/06/22 09:20 Urine Blood Neg (Negative) 06/06/22 09:20 Urine Nitrate Negative (Negative) 06/06/22 09:20 Urine Bilirubin Neg (Negative) 06/06/22 09:20 Urine Urobilinogen Norm mg/dL (Negative) 06/06/22 09:20 Ur Leukocyte Esterase Negative (Negative) 06/06/22 09:20 Serum Ketones Positive (Negative) H 06/06/22 07:55 Hepatitis A IgM Ab Non-reactive (Nonreactive) 06/06/22 12:49 Hep Bs Antigen Non-reactive (Nonreactive) 06/06/22 12:49 Hep B Core IgM Ab Non-reactive (Nonreactive) 06/06/22 12:49 Hepatitis C Antibody Non-reactive (Nonreactive) 06/06/22 12:49 Vitals Last Vital Signs Temp 98.5 F 06/07/22 08:00 Pulse 68 06/07/22 12:00 Resp 18 06/07/22 12:00 BP 138/66 06/07/22 08:00 Pulse Ox 97 06/07/22 12:00 O2 Del Method 06/06/22 22:30 Discharge Plan Discharge Patient Disposition: Home Condition: Stable Prescriptions: New insulin lispro [Humalog KwikPen Insulin] 100 unit/mL insulin pen 15 unit SUBCUT TID Qty: 15 6RF Rx Instructions: Use as directed with meals, dosage may change on carb count insulin glargine [Lantus Solostar U-100 Insulin] 100 unit/mL (3 mL) insulin pen 20 unit SUBCUT DAILY Qty: 15 6RF Continued Tylenol Ex Str Rapid Release 500 mg Tablet 1,000 mg PO Q6H PRN (Reason: Pain) Discontinued Novolin R Regular U-100 Insuln 100 unit/mL Solution See Rx Instructions .ROUTE .COMPLEX Rx Instructions: 1 UNIT FOR EVERY 6-7 CARBS insulin lispro [Humalog U-100 Insulin] 100 unit/mL Solution See Rx Instructions .ROUTE .COMPLEX Rx Instructions: 1 UNIT FOR EVERY 6-7 CARBS Discharge Orders: Discharge Order (Routine); Ordered 06/07/22 Ordered By: Catalino Rousseau Referrals: Kranthi Dennis MD [Physician] - 06/12/22 11:00 am Discharge Diet: Diabetic Discharge Activity: Increase activity as tolerated Patient Instructions: Opioid Safety Activity Restrictions/Additional Instructions: Follow-up with primary care provider in 4 to 7 days Keep track of blood sugar at least twice daily, and as needed to bring to appointment Return for any concerns Patient's Health Concerns: Hyperglycemia Assessment: DKA Plan of Treatment: Resumption of insulin, avoidance of DKA Goals: No further hospitalizations Discharge Attestations Time Spent in Discharge Care*: greater than 30 min Quality Metrics Clinical Quality Measures [ No reported AMI, CVA or VTE this stay] Coding Level of Care Code Acute Chg FW DC note Diagnoses DKA (diabetic ketoacidosis) E11.10 Acute kidney injury N17.9 Transaminitis R74.01 Pseudohyponatremia R79.89 Leukocytosis D72.829
== END 2022-06-07 15:10 | disposition home or self-care (01) ==
LOC: ER 10:16 → ER IP 10:49 → ICU 16:17
PROVIDERS: Physician Assistant; Admitting Provider Internal Medicine; Emergency Provider Family Medicine; Visit Provider Internal Medicine
DX: E11.10 Type 2 diabetes mellitus with ketoacidosis without coma (principal); N17.9 Acute kidney failure, unspecified; R74.01 Elevation of levels of liver transaminase levels; R79.89 Other specified abnormal findings of blood chemistry; D72.829 Elevated white blood cell count, unspecified; Z79.4 Long term (current) use of insulin; I49.5 Sick sinus syndrome
CPT/HCPCS: 36415; 36416; 36600; 71045; 80048; 80051; 80053; 80074; 81003; 82009; 82330; 82805; 82962; 83690; 83735; 84100; 84443; 85025; 93005; 96361; 96365; 96366; 96372; 96375; 99291; G0378; J1815; J2550; J3490; J7030; J7050